=== PATIENT | male | born 1990 | race Caucasian/White ===

== ENCOUNTER 2016-10-27 15:02 | Emergency (ER) | payer MEDICAID ==
[~2016-10-27] VITALS: Ht 172.7 cm; Wt 83.9 kg
[2016-10-27 15:02] VITALS: BP_SYST 129
[2016-10-27 15:34] LABS: BASOPHILS # (AUTO) 0.1 K/uL (0.0-0.2); BASOPHILS % (AUTO) 0.7 % (0.0-2.0); EOSINOPHILS # (AUTO) 0.5 K/uL (0.0-0.4); EOSINOPHILS % (AUTO) 5.6 % (0.0-4.0); HEMOGLOBIN 16.9 g/dL (14.0-18.0); LYMPHOCYTES # (AUTO) 1.3 K/uL (1.0-5.5); LYMPHOCYTES % (AUTO) 15.9 % (20.5-51.5); MEAN CORPUSCULAR HEMOGLOBIN 30 pg (27-31); MEAN CORPUSCULAR HGB CONC 34 % (32-36); MEAN CORPUSCULAR VOLUME 90 fL (79.0-98.0); MONOCYTES # (AUTO) 0.5 K/uL (0.0-1.0); NEUTROPHILS # (AUTO) 5.9 K/uL (1.8-7.7); NEUTROPHILS % (AUTO) 71.8 % (40.0-70.0); PLATELET COUNT (AUTO) 304 K/uL (130-430); RED BLOOD CELL COUNT(AUTO) 5.57 MIL/uL (4.2-6.2); RED CELL DISTRIBUTION WIDTH 13.2 % (9.0-15.0); WHITE BLOOD COUNT (AUTO) 8.3 K/uL (4.8-10.8)
[2016-10-27 15:38] LABS: CALCIUM 8.5 mg/dL (8.4-11.0); CREATININE 1.17 mg/dL (0.55-1.30); POTASSIUM 4.2 mmol/L (3.5-5.1)
[2016-10-27 15:41] LABS: PROTHROMBIN TIME 10.4 SECS (9.5-12.5)
[2016-10-27 15:53] LABS: ALBUMIN 3.8 g/dL (3.4-4.8); THYROID STIMULATING HORMONE 0.8 uIu/mL (0.34-4.82); TOTAL BILIRUBIN 0.3 mg/dL (0.0-1.0); TOTAL PROTEIN, SERUM 7.4 g/dL (6.4-8.3)
[2016-10-27 16:37] VITALS: BP_SYST 121
== END 2016-10-27 16:36 | disposition home or self-care (01) ==
LOC: SED 15:02
DX: B34.9 Viral infection, unspecified (principal)
CPT/HCPCS: 36415; 80053; 84443-TC; 85025; 85610-TC; 85730-TC; 99284

== ENCOUNTER 2016-11-04 12:06 | Emergency (ER) | payer MEDICAID ==
[~2016-11-04] VITALS: Ht 172.7 cm; Wt 90.7 kg
[2016-11-04 12:19] VITALS: BP_SYST 120
--- NOTE | 2016-11-04 13:18 | NUR ---
Patient ambulated to bed 3.
--- NOTE | 2016-11-04 13:20 | NUR ---
Patient brought in by father with chief complaint of nausea and vomiting since midnight. Patient awake, alert, oriented x 4, complaining of nausea and rash to bilateral medial lower extermities. No other complaints/injuries per patient, none noted.
--- NOTE | 2016-11-04 13:22 | NUR ---
Dr. Hernandez at bedside examining patient.New orders recieved.
[2016-11-04] MEDS ORDERED: FAMOTIDINE 20 MG TABLET PO ONE (14:00)
[2016-11-04] MEDS ORDERED: DEXAMETHASONE SOD PHOSPHATE 10 MG/ML VIAL IM ONE (14:00)
[2016-11-04] MEDS ORDERED: ONDANSETRON 4 MG ODT TAB PO ONE (14:00)
[2016-11-04] MEDS ORDERED: KETOROLAC TROMETHAMINE 60 MG/2 ML VIAL IM ONE (14:00)
--- NOTE | 2016-11-04 14:00 | NUR ---
Patient medicated as ordered.
[2016-11-04 14:46] LABS: BASOPHILS % (AUTO) 0.1 % (0.0-2.0); EOSINOPHILS # (AUTO) 0.1 K/uL (0.0-0.4); EOSINOPHILS % (AUTO) 0.4 % (0.0-4.0); HEMATOCRIT 50.8 % (36-54); HEMOGLOBIN 17.3 g/dL (14.0-18.0); LYMPHOCYTES # (AUTO) 0.4 K/uL (1.0-5.5); MEAN CORPUSCULAR HEMOGLOBIN 31 pg (27-31); MEAN CORPUSCULAR HGB CONC 34 % (32-36); MEAN CORPUSCULAR VOLUME 90 fL (79.0-98.0); MONOCYTES # (AUTO) 0.5 K/uL (0.0-1.0); MONOCYTES % (AUTO) 2.8 % (1.7-9.3); NEUTROPHILS # (AUTO) 17.5 K/uL (1.8-7.7); NEUTROPHILS % (AUTO) 94.7 % (40.0-70.0); PLATELET COUNT (AUTO) 314 K/uL (130-430); RED BLOOD CELL COUNT(AUTO) 5.67 MIL/uL (4.2-6.2); WHITE BLOOD COUNT (AUTO) 18.5 K/uL (4.8-10.8)
[2016-11-04 14:50] VITALS: BP_SYST 120
--- NOTE | 2016-11-04 14:50 | NUR ---
Patient given written and verbal discharge instructions and verbalizes understanding. ER MD discussed with patient the results and treatment provided. Given copies of tests performed in ER. Patient in stable condition. ID arm band removed. IV catheter removed intact and dressing applied, no active bleeding. Rx of zofran, amoxicillin, and ibuprofen given. Patient educated on pain management and to follow up with PMD. Pain Scale 0/10. Patient driven to home by father for safety. Opportunity for questions provided and answered.
[2016-11-04 14:51] LABS: CALCIUM 7.9 mg/dL (8.4-11.0); CREATININE 1.31 mg/dL (0.55-1.30); POTASSIUM 3.6 mmol/L (3.5-5.1)
[2016-11-04 14:55] LABS: ALBUMIN 3.8 g/dL (3.4-4.8); TOTAL BILIRUBIN 0.8 mg/dL (0.0-1.0); TOTAL PROTEIN, SERUM 7.4 g/dL (6.4-8.3)
== END 2016-11-04 14:50 | disposition home or self-care (01) ==
LOC: SED 12:06
DX: J02.9 Acute pharyngitis, unspecified (principal); R11.2 Nausea with vomiting, unspecified
CPT/HCPCS: 36415; 80053; 83690; 85025; 96372; 99284; J1100; J1885; Q0162